=== PATIENT | female | born 1970 | race Caucasian/White ===

== ENCOUNTER 2022-12-24 06:03 | Observation (INO) ==
--- NOTE | 2022-12-09 11:18 | PAT Medication Instructions ---
Medication Instructions Date of Service December 09, 2022 Home Medications bupropion HCl 150 mg 24 hr tablet, extended release 150 mg PO QAM omeprazole 20 mg capsule,delayed release 20 mg PO QAM Take morning of surgery With a small sip of water, OTHERWISE NOTHING TO EAT OR DRINK AFTER MIDNIGHT: bupropion HCl 150 mg 24 hr tablet, extended release 150 mg PO QAM omeprazole 20 mg capsule,delayed release 20 mg PO QAM Other Notes If you have any questions please call us at [phone] or [phone] or [phone] or [phone]
--- NOTE | 2022-12-10 15:27 | Anesthesiology Consultation ---
Date of Service December 10, 2022 Assessment & Plan (1) Encounter for pre-operative examination: - check urine test STAT am DOS. - cardiology office visit [facility] 07/09/22: "...not overly symptomatic with ectopy...reviewed Zio tracings...not a proponent of taking medications thus declines trial for symptom management...instructed to notify me for new or worsening symptoms or should she reconsider trial of beta chidi...nonrheumatic mitral valve regurgitation. categorized as mild on echo...surveillance every 3 to 5 years with echo..." Chart Review Chart Review: Acceptable Risk for Surgery and Patient seen in Pre Admission Testing Teaching & Discussion Pre-Anesthesia Teaching/Discussion Notes: Instructed NPO after midnight before surgery, except medications with 15 cc of water. Medication instructions provided according to the PAT guidelines. History Surgery Operation Date: 12/24/22 12:35 Proposed Procedures p C6 Corpectomy, Spinal Cord Monitoring - Yunior Richards DO Height/Weight Height: 5 ft 3 in Weight: 96.4 kg Allergies Allergy/AdvReac Type Severity Reaction Status Date / Time naproxen Allergy Severe got Verified 12/03/22 15:00 bleeding ulcers Iodinated Contrast Media Allergy Intermediate Hives Verified 12/03/22 15:00 Medications Home Medications Medication Instructions Recorded Confirmed Last Taken bupropion HCl 150 mg 24 hr tablet, 150 mg PO QAM 12/03/22 12/03/22 Unknown extended release omeprazole 20 mg capsule,delayed 20 mg PO QAM 12/03/22 12/03/22 Unknown release Past Medical History Medical History (Updated 12/10/22 @ 15:29 by Hoa Loaiza PA-C) Anxiety Essential tremor GERD (gastroesophageal reflux disease) controlled, stable per pt History of menopause age 26 after of 2nd child Hx of ectopic removed Hx of gastric ulcer 3-4 years ago, had cauterized, caused by acid and naproxen Hx of reduction of nasal fracture Premature atrial contractions Slow to wake up after anesthesia denies unanticipated extended intubation or re-intubation Patient denies h/o stroke, seizures, heart attack, heart failure, DM, HTN, blood clots/DVTs or blood transfusions. Exercise / Class Metabolic Activity II 4-5 Yardwork/Stairs/Walk up hill (denies chest discomfort or shortness of breath with 1 FOS) Past Surgical History Surgical History (Updated 12/10/22 @ 15:30 by Hoa Loaiza PA-C) H/O radiofrequency ablation (RFA) of nerve of lumbar spine History of dilatation and curettage History of esophagogastroduodenoscopy (EGD) History of laparotomy for removal ectopic Hx laparoscopic cholecystectomy Hx of appendectomy Hx of colonoscopy Hx of laparoscopy x3 ovarian cystectomy Hx of tonsillectomy S/P wisdom tooth extraction 2 removed Past Anesthesia History No Family Hx of Anesthesia Complications and Other (see above) History of PONV No Hx of PONV and No Hx of Motion Sickness Social History Smoking Status: Former smoker Do You Dip or Chew Tobacco: No Smoking End Date: 12 years ago Hx Alcohol Use: Yes alcohol intake frequency: holidays/special occasions only Hx Substance Use: No substance use type: does not use Review of Systems Snoring, denies witnessed apneas. Patient denies chest pain, shortness of breath, dyspnea on exertion, fever, chills, cough, wheezing, or palpitations. Physical Exam Vital Signs Vitals BP 137/83 P 77 TEMP 97.9 SP02 98% on RA RESP 18 Physical Patient resting comfortably in chair in no acute distress, alert and oriented, responding appropriately throughout visit Full cervical extension range of motion without pain TMD 3.5 finger breadths Mallampati Score 2 Dentition: several crowns, denies chipped or loose teeth, implants or bridges Lungs: normal respiratory effort. Good air movement, clear throughout to auscultation, no adventitious breath sounds Cardiac: regular rate and rhythm, no murmurs noted Carotid arteries: negative bruit bilat Lab Results Anesthesia Preop Results Results Anesthesia Widget: WBC 6.94 K/ul (4.8-10.8) 12/10/22 Hgb 13.1 g/dl (12.0-16.0) 12/10/22 Hct 37.7 % (37.0-47.0) 12/10/22 Plt 270 K/uL (130-400) 12/10/22 Na 139 mmol/L (136-145) 12/10/22 K 4.2 mmol/L (3.5-5.1) 12/10/22 Cl 105 mmol/L (98-107) 12/10/22 CO2 30 mmol/L (21-32) 12/10/22 BUN 14 mg/dl (6-23) 12/10/22 Creat 0.95 mg/dl (0.6-1.2) 12/10/22 Glucose Level 93 mg/dl (70-99(Fasting)) 12/10/22 PT 10.3 Seconds (9.0-12.0) 12/10/22 PTT 25.3 Seconds (21.0-31.0) 12/10/22 INR 0.9 (0.9-1.1) 12/10/22 Urine Color Yellow 12/10/22 Urine Appearance Clear (Clear) 12/10/22 Urine pH 6.5 (4.5-7.5) 12/10/22 Urine Specific [place] 1.007 (1.000-1.030) 12/10/22 Urine Protein Negative (Negative) 12/10/22 Urine Glucose (UA) Negative (Negative) 12/10/22 Urine Ketones Negative (Negative) 12/10/22 Urine Blood Negative (Negative) 12/10/22 Urine Nitrite Negative (Negative) 12/10/22 Urine Bilirubin Negative (Negative) 12/10/22 Urine Urobilinogen Negative (Negative) 12/10/22 Urine Leukocyte Esterase Negative (Negative) 12/10/22 Blood Type A Positive 12/10/22 Antibody Screen NEGATIVE 12/10/22 Testing Electrocardiogram Date: 05/20/22 NSR with sinus arrhythmia, rate 71 bpm Chest X-Ray Date: 05/20/22 *1view* No acute cardiopulmonary process Echocardiogram Date: 07/08/22 EF 60-64% No LV segmental wall motion abnormalities Mild mitral regurgitation Mild tricuspid regurgitation Other Testing Cardiac event monitor 05/29/22 Predominant underlying rhythm: sinus rhythm Min HR 63 bpm Avg 90 bpm Max 152 bpm Occasional isolated SVEs Rare SVE couplets, isolated VEs and VE triplets Ventricular trigeminy was present
[~2022-12-24 06:03] MED LIST: ACETAMINOPHEN 500 MG TAB PO SCH; ALLERGY Noted to ORDERED Medication SCH; CeleBREX 200 MG CAP PO SCH; GABAPENTIN 900 MG DOSE PO SCH; LR 15ML/HR IV SCH; LR 60ML/HR IV SCH; ceFAZolin 2000MG 2,000 MG/15 ML SYR IV SCH
[2022-12-24] MEDS ORDERED: ceFAZolin 330 MG/ML 1 GM VIAL ONE (06:59)
[2022-12-24] MEDS ORDERED: LIDOCAINE 2% 2 ML VIAL/AMP(20MG/ML) INFIL ONE (07:06)
[2022-12-24] MEDS ORDERED: ONDANSETRON INJ 2 MG/ML 2 ML VIAL ONE (07:06)
[2022-12-24] MEDS ORDERED: fentaNYL citrate PF 100 MCG/2 ML VIAL ONE (07:06)
[2022-12-24] MEDS ORDERED: DEXAMETHASONE SOD INJ 4 MG/ML VIAL ONE (07:06)
[2022-12-24] MEDS ORDERED: ROCURONIUM BROMIDE 10 MG/ML 5 ML VIAL IV ONE (07:06)
[2022-12-24] MEDS ORDERED: MIDAZOLAM HCL 1 MG/ML 2ML VIAL ONE (07:06)
[2022-12-24] MEDS ORDERED: PROPOFOL IV EMULSION 10 MG/ML 20 ML VIAL IV ONE (07:06)
--- NOTE | 2022-12-24 07:47 | History & Physical Bridge Note ---
Date of Service December 24, 2022 History & Physical Bridge Note I have examined the patient, reviewed the History & Physical and in the interval since the performance of the History & Physical I have noted the following changes of clinical significance: no changes noted
--- NOTE | 2022-12-24 07:48 | History & Physical Report ---
Date of Service December 24, 2022 Assessment & Plan (1) Cervical stenosis of spinal canal: Plan: Cervical C6 corpectomy History of Present Illness Chief Complaint: Neck and arm pain Primary Care Provider: Raul Jenkins This is a 52-year-old female who presents with chronic persistent neck and arm pain after failing course of nonoperative care she is here for surgical invention. Allergies Allergy/AdvReac Type Severity Reaction Status Date / Time naproxen Allergy Severe got Verified 12/24/22 06:18 bleeding ulcers Iodinated Contrast Media Allergy Intermediate Hives Verified 12/24/22 06:18 Home Medications Medication Instructions Recorded Confirmed Type bupropion HCl 150 mg 24 hr tablet, 150 mg PO QAM 12/03/22 12/24/22 History extended release omeprazole 20 mg capsule,delayed 20 mg PO QAM 12/03/22 12/24/22 History release Past Med/Surg History Medical History (Updated 12/24/22 @ 07:47 by Yunior Richards DO) Anxiety Essential tremor GERD (gastroesophageal reflux disease) controlled, stable per pt History of menopause age 26 after of 2nd child Hx of ectopic removed Hx of gastric ulcer 3-4 years ago, had cauterized, caused by acid and naproxen Hx of reduction of nasal fracture Premature atrial contractions Slow to wake up after anesthesia denies unanticipated extended intubation or re-intubation Surgical History H/O radiofrequency ablation (RFA) of nerve of lumbar spine History of dilatation and curettage History of esophagogastroduodenoscopy (EGD) History of laparotomy for removal ectopic Hx laparoscopic cholecystectomy Hx of appendectomy Hx of colonoscopy Hx of laparoscopy x3 ovarian cystectomy Hx of tonsillectomy S/P wisdom tooth extraction 2 removed Social History Smoking Status: Former smoker Smoking End Date: 12 years ago; Second Hand Exposure: Yes (hx as child); Do You Dip or Chew Tobacco: No; Tobacco Cessation Education Requested by Patient: No Hx Alcohol Use: Yes Hx Substance Use: No Preferred Language: Macedonian Communication Ability: Effective Partner Management Consultant Required: No Beliefs That Will Affect Care: None Current Living Situation: Spouse and Family Other Information That Helps Us Care for You: No Feels Safe at Home: Yes Safety Concerns: Feels Safe At This Time Assistive Devices: Glasses Physical Exam Physical Exam: Patient is alert and oriented Heart regular rhythm Lungs clear Results & Data Results & Data Vital Signs (Past 12 Hours) Vital Signs Temp Pulse Resp BP Pulse Ox O2 Del Method 12/24/22 06:49 121/91 12/24/22 06:19 36.7 C 83 18 144/103 H 98 Room Air
[2022-12-24] MEDS ORDERED: FLOSEAL HEMOSTATIC MATRIX 10ML TOP ONE (08:15)
[2022-12-24] MEDS ORDERED: HYDROmorphone INJ 2 MG/ML SYR/VIAL ONE (08:23)
[2022-12-24] MEDS ORDERED: GLYCOPYRROLATE 0.2 MG/ML VIAL ONE (09:16)
[2022-12-24] MEDS ORDERED: NEOSTIGMINE METHYLSULFATE 1 MG/ML 10ML VIAL ONE (09:16)
--- NOTE | 2022-12-24 09:22 | Operative Report ---
Post Operative Report Pre & Post Diagnosis Operation Date: 12/24/22 07:45 Pre-Op Diagnosis: Cervical spinal stenosis with myeloradiculopathy Post-Op Diagnosis: Same I identified the patient and participated in the time-out.: Yes Procedure Operation Date: 12/24/22 07:45 Actual Procedures #1 anterior cervical corpectomy with bilateral foraminotomies C6. #2 anterior cervical arthrodesis C5-C7. #3 placement of 23 mm peek cage C5-C7. #4 placement locally harvested morselized autograft combined with I factor and interbody cage. #5 placement of K2 M plate and screws from C5-C7. Surgeon Yunior Richards, DO Agricultural Equipment Sales Manager Magdalene Mackey Estimated Blood Loss 10 Findings See Below The patient is 5 foot 3 weighing over 95 kg with a BMI in excess of 37. Patient's body habitus did contribute to significant technical difficulty with positioning exposure adding at least 50% increased operative time. Specimens None Indications This is a 52-year-old female who presents above-mentioned diagnosis after failing course of nonoperative care she is here for surgical invention. Description of Procedure Patient was met with identified informed consent obtained. Patient was then taken to the operative suite underwent a patient placed in spine position jacks table at [facility]. All bony prominences well-padded eyes inspected to ensure no external pressure placed upon the. This point the anterior cervical spine was prepped and draped in normal sterile fashion. With the assistance of fluoroscopy defy the C6 vertebral body and a transverse incision was placed along the right anterior aspect of the cervical spine overlying his region. Blunt dissection with assistance of bipolar electrocautery is warm down to and exposing the anterior cervical spine from C5-C7. Self-retaining retractors placed. Then performed a complete discectomy of C5-C6 out to the uncovertebral joints bilaterally followed by C6-C7. [place] distracting pins were placed in C5 and C7 to distract across the C6 vertebral body. Complete corpectomy was then performed including removal of all posterior annular fibers longitudinal ligament bilateral foraminotomies. Endplates burred to subcortical bleeding bone and a 23 mm peek cage filled locally harvested morselized auto graft and I factor tapped in position. Distracting apparatus was removed and a K2 M plate and screws applied with the assistance of fluoroscopy. The incision was then copiously irrigated explored to ensure no damage to surrounding structures or remaining bleeding. 10 round MALICK drain inserted. The incision was then closed with 2 Vicryl in a fashion of 4 Monocryl for fascial closure. Steri-Strips sterile dressing placed. Patient waken taken to PACU in stable condition. Please note spinal cord monitoring visualized at the procedure no changes noted. Lastly Magdalene Mackey was present at the entire procedure and all patient positioning complex portion of the surgery and final skin closure. I attest to the content of the Intraoperative Record and any orders documented t herein. Any exceptions are noted below.
[2022-12-24] MEDS ORDERED: PROMETHAZINE HCL 12.5 MG in SODIUM CHLORIDE 0.9% 50 ML IV PRN ×2 (09:50→13:49)
[2022-12-24] MEDS ORDERED: ePHEDrine sulfate 50 MG/ML AMP IV PRN (09:50)
[2022-12-24] MEDS ORDERED: HYDROmorphone INJ 2 MG/ML SYR/VIAL IV PRN (09:50)
[2022-12-24] MEDS ORDERED: ATROPINE SULFATE 0.1 MG/ML 10ML SYR IV PRN (09:50)
--- NOTE | 2022-12-24 13:32 | Anesthesiology Progress Note ---
Date of Service December 24, 2022 Anesthesia Post Procedure Vital Signs Vital Signs: Temp Pulse Pulse Resp BP Pulse Ox O2 Del Method 12/24/22 13:30 81 13 115/79 96 Nasal Cannula 12/24/22 13:00 83 12 113/83 97 Nasal Cannula 12/24/22 12:30 89 21 118/71 95 Nasal Cannula 12/24/22 12:15 81 19 114/70 93 Nasal Cannula 12/24/22 12:00 74 12 105/84 98 Nasal Cannula 12/24/22 11:30 74 12 124/71 98 Nasal Cannula 12/24/22 11:15 72 12 112/74 92 Nasal Cannula 12/24/22 11:05 90 16 120/72 96 Nasal Cannula 12/24/22 10:55 36.4 C L 75 13 115/70 96 Nasal Cannula 12/24/22 10:45 76 15 117/65 96 Nasal Cannula 12/24/22 10:35 71 21 111/63 99 Nasal Cannula 12/24/22 10:25 87 16 113/64 96 Oxymask 12/24/22 10:15 77 17 122/76 97 Oxymask 12/24/22 09:55 84 15 128/80 100 Oxymask 12/24/22 09:45 84 12 144/80 H 95 Oxymask 12/24/22 10:05 80 15 136/73 96 Oxymask 12/24/22 09:36 36 C L 66 10 L 129/79 66 L Room Air 12/24/22 06:49 121/91 12/24/22 06:19 36.7 C 83 18 144/103 H 98 Room Air O2 Flow Rate 12/24/22 13:30 4 12/24/22 13:00 4 12/24/22 12:30 4 12/24/22 12:15 4 12/24/22 12:00 4 12/24/22 11:30 4 12/24/22 11:15 4 12/24/22 11:05 4 12/24/22 10:55 4 12/24/22 10:45 4 12/24/22 10:35 5 12/24/22 10:25 7 12/24/22 10:15 15 12/24/22 09:55 15 12/24/22 09:45 15 12/24/22 10:05 15 12/24/22 09:36 12/24/22 06:49 12/24/22 06:19 Pain Intensity Neck: Pain Intensity: 2 Transfer of Care Handoff Completed per policy Notes Mental Status: alert / awake / arousable Patient Amnestic to Procedure: Yes Nausea / Vomiting: adequately controlled Pain: adequately controlled Airway Patency, RR, SpO2: stable & adequate BP & HR: stable & adequate Hydration State: stable & adequate Anesthetic Complications: no major complications apparent and Pt Satisfied with anesthetic care
[2022-12-24] MEDS ORDERED: MAGNESIUM HYDROXIDE SUSP 30 ML UDC PO PRN (13:49)
[2022-12-24] MEDS ORDERED: ACETAMINOPHEN 500 MG TAB PO PRN (13:49)
[2022-12-24] MEDS ORDERED: SOD PHOSPHATE/SOD BIPHOSPHATE ENEMA 132 ML BTL PR PRN (13:49)
[2022-12-24] MEDS ORDERED: LORazepam 2 MG/1 ML VIAL IV PRN (13:49)
[2022-12-24] MEDS ORDERED: traMADol HCL 50 MG TABLET PO PRN (13:49)
[2022-12-24] MEDS ORDERED: METOCLOPRAMIDE HCL INJ 5 MG/ML 2 ML VIAL IV PRN (13:49)
[2022-12-24] MEDS ORDERED: HYDROmorphone INJ 0.5 MG/0.5 ML SYR IV PRN (13:49)
[2022-12-24] MEDS ORDERED: RACEPINEPHRINE 2.25% NEBU SOLN 0.5 ML VIAL INH PRN (13:49)
[2022-12-24] MEDS ORDERED: ONDANSETRON 4 MG OD TAB PO PRN (13:49)
[2022-12-24] MEDS ORDERED: diphenhydrAMINE Capsule 25 MG CAP PO PRN (13:49)
[2022-12-24] MEDS ORDERED: FAMOTIDINE 20 MG TAB PO PRN (13:49)
[2022-12-24] MEDS ORDERED: LORazepam 0.5 MG TAB PO PRN (13:49)
[2022-12-24] MEDS ORDERED: ALUMINUM/MAGNESIUM SUSP 30 ML UDC PO PRN (13:49)
[2022-12-24] MEDS ORDERED: oxyCODONE HCL IR 5 MG TAB (IMMEDIATE RELEASE) PO PRN (13:49)
[2022-12-24] MEDS ORDERED: HYDROmorphone INJ 1 MG/ML SYRINGE IV PRN (13:49)
[2022-12-24] MEDS ORDERED: bisacodyL 10 MG SUPP PR PRN (13:49)
[2022-12-24] MEDS ORDERED: DO NOT ADMINISTER PNEUMOCOCCAL VACCINE PRN (13:49)
[2022-12-24] MEDS ORDERED: DO NOT ADMINISTER FLU VACCINE PRN (13:49)
[2022-12-24] MEDS ORDERED: hydrOXYzine HCl 25 MG TAB PO PRN (13:49)
[2022-12-24] MEDS ORDERED: ONDANSETRON INJ 2 MG/ML 2 ML VIAL IV PRN (13:49)
[2022-12-24] MEDS ORDERED: dexAMETHasone 8 MG in SYRINGE 0 ML IV PRN (13:49)
[2022-12-24] MEDS ORDERED: ACETAMINOPHEN 1,000 MG/100 ML VIAL IV PRN (13:49)
[2022-12-24] MEDS ORDERED: NALOXONE HCL 0.4 MG/1 ML VIAL/CARP IV PRN (13:49)
[2022-12-24] MEDS: LACTATED RINGER'S 1,000 ML IV SCH ×2 (13:55→21:57)
[2022-12-24] MEDS: ceFAZolin 2000MG 2,000 MG/15 ML SYR IV SCH ×2 (15:14→23:11)
--- NOTE | 2022-12-24 17:19 | Fluoroscopy Report ---
FL cervical 2-3V CLINICAL HISTORY: C6 CORPECTOMY COMPARISON STUDY: None. FLUOROSCOPY TIME: 14 seconds. Ka, r: 1.34 mGy FLUOROSCOPIC IMAGES: 2 FINDINGS: Fluoroscopy was provided during C6 corpectomy and C5-C7 anterior cervical fusion. Endotrach eal tube is partially imaged. IMPRESSION: Fluoroscopy provided during C6 corpectomy with C5-C7 anterior fusion. ACT 112: Negative or not required by law. Electronically signed by: Trung Montenegro M.D. 12/24/2022 5:18 PM
[2022-12-24] MEDS ORDERED: DOCUSATE SODIUM/SENNA 50/8.6MG TAB PO SCH (21:00)
[2022-12-25] MEDS ORDERED: POLYETHYLENE (MIRALAX) 17 GM PACK PO SCH (06:00)
--- NOTE | 2022-12-25 08:34 | Discharge Summary ---
Date of Service December 25, 2022 Admission HPI Per Admitting Provider This is a 52-year-old female who presents with chronic persistent neck and arm pain after failing course of nonoperative care she is here for surgical invention. Principal Diagnosis Cervical spinal stenosis with myeloradiculopathy Discharge Data Allergies Allergy/AdvReac Type Severity Reaction Status Date / Time naproxen Allergy Severe got Verified 12/24/22 06:18 bleeding ulcers Iodinated Contrast Media Allergy Intermediate Hives Verified 12/24/22 06:18 Procedures Performed Operation Date: 12/24/22 07:45 Actual Procedures p C6 Corpectomy, Spinal Cord Monitoring(Not Applicable) - Yunior Richards DO Ordered Studies 12/24/22 07:45 [place] cervical 2-3V Routine Hospital Course (1) Cervical stenosis of spinal canal: Patient went anterior cervical corpectomy and fusion tolerated this well was taken to orthopedic floor postoperatively postop day #1 she was swallowing well no hoarseness. Excellent strength testing. Arm pain markedly improved. MALICK drain decreasing probably. Simply discharged home. Discharge orders instructions found in chart for further review. Total Time Total Time Spent Total Time Spent (In Minutes): 20 minutes Discharge Plan Discharge Items Patient Disposition: Home - Self-Care Reason For Visit: Spondylosis Discharge Diagnosis: Cervical spinal stenosis with myeloradiculopathy Activity: As commented below Non-emergency contact: Primary Care Provider Call non-emergency contact if: you have any medication questions Follow-up/Referrals: Raul Jenkins PA-C [Primary Care Provider] - Diet: Regular Addtl Attending Provider Instructions: ACTIVITY RECOMMENDATIONS: SELF CARE INSTRUCTIONS AFTER THORACIC/LUMBAR FUSIONS 1. You may walk to your tolerance. It is good exercise for your legs and back. Expect some back and intermittent leg aches and pains. 2. You may perform "counter-top" level activities (make a sandwich, carmelo with a project, etc.). 3. No bending or lifting of more than 10 pounds or back twisting of any nature (roll like a log when turning in bed). 4. You may ride in a car for 20-30 minutes at a time. No driving until after your first visit with your doctor. 5. Frequent changes of position and restricting sitting to 30 minutes at a time will help limit the amount of back spasms and stiffness you may experience. 6. You may discontinue the use of ambulatory aids (cane, crutches, etc.) once your strength and confidence allow. 7. You may bellstand attendant the shower and let water strike your incision when you arrive home at least once daily. Do not take a tub bath, sit in a hot tub or go into a swimming pool until after your first recheck in the office. SPECIAL CARE INSTRUCTIONS: VERY IMPORTANT TO READ AND REVIEW A. Your surgical incision has been closed with a cosmetic suture under the skin that will dissolve in about 6 weeks. In 14 days, you can use a pair of clean scissors and cut the suture that is left outside of the skin at the ends of your incision. 1. The small skin tapes can be removed 7 days after surgery if they have not fallen off by that point. 2. You may keep the wound open to air as much as possible to promote healing after post-op day number 5 unless told otherwise by your doctor. 3. If you think the wound looks like it is becoming infected (redness or wo rsening drainage) and/or you are experiencing fever, chill or worsening back pain and muscle spasms, contact the office so that we may evaluate you as soon as possible. B. Complications are uncommon, but please contact us if you have any signs or symptoms of: 1. wound infection (fever higher than 102.5 degrees F, redness, separation of wound, drainage, or increasing pain from the incision) 2. blood clots in legs (pain, swelling, redness and warmth in legs) 3. urinary tract infection (fever higher than 102.5 degrees F, burning upon urination or increased frequency of urination) 4. nerve problems (inability to walk on your toes or heels, numbness, loss of bowel or bladder control) 5. any other symptoms that concern you C. Please call the office at if you have any concerns or questions about your operation or recovery. D. No smoking! Smoking drastically decreases the chance of a solid fusion. E. Do not take any anti-inflammatory medications (Indocin, Advil, Motrin, Aspirin, Naprosyn, etc.) as these may inhibit the chance of a solid fusion. Tylenol is okay to take for pain. MANAGING PAIN AFTER SPINAL SURGERY 1. Narcotic medication is intended for short-term use and will be provided for surgical pain. Surgical pain usually lasts for a period of 4-6 weeks. Narcotic medication includes Percocet, Vicodin, Darvocet, Tylenol #3 or Lortab. 2. Longer-term pain is more appropriately treated with non-narcotic medication such as Tylenol ES. 3. Muscle spasm is not appropriately treated with narcotics. Muscle relaxers such as Soma, Flexeril or Skelaxin can be used along with Tylenol ES. 4. Remember that we all live with some "aches and pains". This is not unusual or uncommon after an injury or as we get older. a. Back pain is expected and may include muscle spasms for 4 to 6 weeks after surgery. The pain should gradually improve. If the pain worsens for no apparent reason, please contact the office. b. Intermittent leg pain may also be experienced and should not be concerned about unless it worsens for no apparent reason. If so, please contact the office. 5. We will provide appropriate medication within the normal guidelines of their prescribed use. We will also be very cautious and aware of potential abuse and extended duration of patients' medication needs. a. Pain medications are for your comfort and to assist with sleep and rest so that the tissue can heal. They are not provided in order to return to normal activity and should not be used through the day. To do so or worsening pain at night can result from ongoing tissue damage and development of tolerance to the prescribed medicine. 6. Please allow 2-3 days to process refills. Prescriptions will not be mailed but must be picked up at the office. FOLLOW UP VISIT: Keep your scheduled follow-up appointment. Any questions, please call the office at . Pending Studies at Discharge: No Stand-Alone Forms: My [facility] [employer], Smoking Cessation Medications and DC Order Prescriptions: New tramadol 50 mg tablet 50 mg PO Q6H PRN (Reason: pain, moderate) Qty: 30 0RF oxycodone 5 mg tablet 5 mg PO Q6H PRN (Reason: pain) Qty: 30 0RF Continued omeprazole 20 mg Capsule,Delayed Release(Dr/Ec) 20 mg PO QAM bupropion HCl 150 mg Tablet Extended Release 24 Hr 150 mg PO QAM Discharge Orders: Discharge Order (Routine); Ordered 12/25/22 Ordered By: Yunior Richards Admission Data Admit Date/Time: 12/24/22 09:24 Attending Provider: Yunior Richards Admit Provider: Yunior Richards Primary Care Provider: Raul Jenkins
[2022-12-25] MEDS ORDERED: PANTOprazole 40 MG TAB PO SCH (09:00)
[2022-12-25] MEDS ORDERED: dexAMETHasone 6 MG in SYRINGE 0 ML IV SCH (09:00)
[2022-12-25] MEDS ORDERED: buPROPion XL 150 MG TABCR PO SCH (09:00)
== END 2022-12-25 11:53 | disposition home or self-care (01) ==
LOC: 3E 06:03 → ASU 06:03